=== PATIENT | male | born 2000 | race Caucasian/White ===

== ENCOUNTER 2018-12-02 18:13 | Emergency (ER) | payer OTHER ==
--- NOTE | 2018-12-02 19:01 | EDPHY ---
H & P Stated Complaint: LLQ/groin/testicular pain Time Seen by Provider: 12/02/18 19:01 - Personal History Current Tetanus/Diphtheria Vaccine: Yes - Medical/Surgical History Hx Asthma: No Hx Chronic Respiratory Disease: No Hx Diabetes: No Hx Cardiac Disease: No Hx Renal Disease: No Hx Cirrhosis: No Hx Alcoholism: No Other PMH: Denies - Social History Smoking Status: Never smoked Constitutional: Initial Vital Signs Temperature (C) 36.6 C 12/02/18 18:20 Heart Rate 82 12/02/18 18:20 Respiratory Rate 18 12/02/18 18:20 Blood Pressure 153/79 H 12/02/18 18:20 O2 Sat (%) 96 12/02/18 18:20 O2 Delivery Mode Room Air Allergies/Adverse Reactions: No Known Allergies Allergy (Unverified 12/02/18 18:24) Home Medications: Medication Instructions Recorded NK [No Known Home Meds] 12/02/18 Medical Decision Making - Diagnostics Imaging: Discussed imaging studies w/ call center manager Radiologist, I viewed and interpreted images myself ED Course/Re-evaluation: CHIEF COMPLAINT: Left abdominal and groin pain HISTORY OF PRESENT ILLNESS: The patient is a 18 y/o male complaining of left abdominal and groin pain. Around 2 weeks ago, he was lifting weights and then went for a run. After the run he developed mild left abdominal pain. Several day later the pain began to radiate down to the left testicle. He went to the [facility] and was told that there was no hernia and that the pain was due to a pulled muscle. He was advised to take Motrin and rest. 10 days after he went to the clinic he lifted weights again and and developed pins and needles in left hip down the line from his hip to his pubic bone. The testicular pain has decreased, but when he presses on a specific spot he develops acute pain. He is unable to identify any bulge. No fever, headache, body aches, lightheadedness, chest pain , heart palpitations, shortness of breath, cough, urinary or bowel complaints, numbness, paresthesias. REVIEW OF SYSTEMS: A comprehensive 10 system review of systems is otherwise negative aside from elements mentioned in the history of present illness and medical decision making. PHYSICAL EXAM: HR, BP, O2 Sat, RR. Temp noted General Appearance: Alert, well hydrated, appropriate, and non-toxic appearing. Head: Atraumatic without scalp tenderness or obvious injury Eyes: Pupils equal, round, reactive to light and accommodation, EOMI, no trauma , no injection. Ears: Clear bilaterally, no perforation, normal landmarks Nose: Atraumatic, no rhinorrhea, clear. Throat: There is no erythema or exudates, no lesions, normal tonsils, mucus membranes moist. Neck: Supple, 2+ carotid upstroke, nontender, no lymphadenopathy. Respiratory: No retractions, no distress, no wheezes, and no accessory muscle use. Lungs are clear to auscultation bilaterally. Cardiovascular: Regular rate and rhythm, no murmurs, rubs, or gallops. Bilateral carotid, radial, dorsalis pedis, and posterior tibial pulses intact. Good capillary refill all extremities. Gastrointestinal: Abdomen is soft, nontender, non-distended, no masses, no rebound, no guarding, no peritoneal signs. Groin: Tenderness medial to left inguinal ligament but no significant bulge present. Musculoskeletal: Normal active ROM of all extremities, atraumatic. Neurological: Alert, appropriate, and interactive. The patient has normal DTRs and non-focal cranial nerves, motor, sensory, and cerebellar exam. Skin: No rashes, good turgor, no nodules on palpation. Past medical history: Denies Past surgical history: Denies Family history: Denies Social history: Student at , single, lives in [place] DIAGNOSTICS/PROCEDURES/CRITICAL CARE TIME: Testicular US: Abnormal loop of bowel that could be an early inguinal hernia that is not incarcerated. DIFFERENTIAL DIAGNOSIS: The differential diagnosis for the patient's testicular pain included but was not limited to epididymitis, orchitis, referred pain from kidney stone, inguinal hernia, and torsion of the testicle. MEDICAL DECISION MAKING: The patient is a 18 y/o male presenting with left abdominal and groin pain onset 2 weeks ago after working out. The pain significantly increased again today. On exam he has tenderness medial to left inguinal ligament but no significant bulge present. Testicular US ordered. 2101: I spoke with Dr. Santiago, radiologist, regarding patient's testicular US. The patient has an abnormal loop of bowel that could be an early inguinal hernia that is not incarcerated. 2106: Reassessed patient and discussed follow up with a general surgeon for the possible left inguinal hernia. I have advised him to do no lifting until he follow up with the general surgeon. Return precautions provided; patient is comfortable with this plan. Departure - Departure Disposition: Home, Routine, Self-Care Clinical Impression: Inguinal hernia Qualifiers: Obstruction and gangrene presence: without obstruction or gangrene Laterality: unilateral Recurrence: non-recurrent Qualified Code(s): K40.90 - Unilateral inguinal hernia, without obstruction or gangrene, not specified as recurrent Condition: Good Instructions: Inguinal Hernia (ED), Testicle Pain (ED) Additional Instructions: 1. Follow up with a general surgeon on Wednesday as you may have an early inguinal hernia. 2. Do not lift any heavy weights or objects until you see the surgeon. 3. Return to the Emergency Department for fever, worsening pain, flank pain or failure to improve within 72 hours. Referrals: Kel Cardenas MD [Medical Doctor] - As per Instructions Report Scribed for: Oz Ordoñez Report Scribed by: Beatris Raman Date of Report: 12/02/18 Time of Report: 19:57
[2018-12-02 21:35] VITALS: BP 141/78
== END 2018-12-02 21:35 | disposition home or self-care (01) ==
DX: K40.90 Unilateral inguinal hernia, without obstruction or gangrene, not specified as recurrent (principal); X50.0XXA Overexertion from strenuous movement or load, initial encounter; Y93.B3 Activity, free weights; Y92.39 Other specified sports and athletic area as the place of occurrence of the external cause